=== PATIENT | male | born 1980 | race African-American/Black ===

== ENCOUNTER 2024-06-30 23:18 | Emergency (ER) | payer SELFPAY ==
[2024-06-30] MEDS ORDERED: DERMABOND SKIN ADHESIVE TOP ONE (23:54)
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
[2024-07-01] MEDS ORDERED: TDAP (DIPHTH,PERTUSS(ACELL),TET VAC) 0.5 ML VIAL IMVAC ONE (00:19)
[2024-07-01 01:02] VITALS: O2SAT 100
[2024-07-01 01:04] VITALS: BP 155/88; TEMP 98
== END 2024-07-01 00:25 | disposition home or self-care (01) ==
LOC: ER 23:18
PROC: 0HQ1XZZ Repair Face Skin, External Approach (ICD-10-PCS; principal; 2024-07-01)
DX: S01.411A Laceration without foreign body of right cheek and temporomandibular area, initial encounter (principal); F17.210 Nicotine dependence, cigarettes, uncomplicated; W01.198A Fall on same level from slipping, tripping and stumbling with subsequent striking against other object, initial encounter; Y93.9 Activity, unspecified; Y92.9 Unspecified place or not applicable; Z23 Encounter for immunization
CPT/HCPCS: 12052; 96372; 99284